=== PATIENT | male | born 2005 | race Caucasian/White ===

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

== ENCOUNTER 2024-08-05 10:12 | Emergency (ER) | payer OTHER ==
[~2024-08-05] VITALS: Ht 180.3 cm; Wt 85.1 kg
[2024-08-05 11:57] VITALS: TEMP 97.1
[2024-08-05] MEDS: KETOROLAC 60MG 2ML VIAL IM ONE (14:41)
[2024-08-05 14:53] VITALS: BP 145/77; O2SAT 99
== END 2024-08-05 15:39 | disposition home or self-care (01) ==
LOC: M ED 10:12
DX: S70.01XA Contusion of right hip, initial encounter (principal); W00.9XXA Unspecified fall due to ice and snow, initial encounter; Y92.9 Unspecified place or not applicable; Y93.89 Activity, other specified; Y99.9 Unspecified external cause status
CPT/HCPCS: 71101; 73502; 96372; 99283; J1885

== ENCOUNTER 2025-05-31 16:25 | Emergency (ER) | payer OTHER ==
[~2025-05-31] VITALS: Ht 180.3 cm; Wt 75.0 kg
[2025-05-31] MEDS ORDERED: IBUP600T42 PO (20:57)
[2025-05-31] MEDS ORDERED: METH-1165 PO (20:57)
[2025-05-31] MEDS: IBUPROFEN 800 MG TAB PO ONE (20:57)
[2025-05-31 21:00] VITALS: BP 124/83; TEMP 98.5; O2SAT 100
== END 2025-05-31 21:10 | disposition home or self-care (01) ==
LOC: M ED 16:25
DX: S39.012A Strain of muscle, fascia and tendon of lower back, initial encounter (principal); Y92.139 Unspecified place military base as the place of occurrence of the external cause; Y99.1 Military activity; X50.1XXA Overexertion from prolonged static or awkward postures, initial encounter; Y93.89 Activity, other specified